=== PATIENT | female | born 1980 | race Caucasian/White ===

== ENCOUNTER 2017-04-18 09:10 | Emergency (ER) | payer SELFPAY ==
[2017-04-18] MEDS ORDERED: DEXAMETHASONE SOD PHOS INJ 10 MG/1 ML VIAL IM ONE (10:18)
--- NOTE | 2017-04-18 10:23 | ER Document Report ---
ED Skin Rash/Insect Bite/Abscs - General Chief Complaint: Rash Stated Complaint: RASH/DIFFICULTY BREATHING Time Seen by Provider: 04/18/17 10:08 Notes: 37 yo female c/o pruritic rash to face, trunk and extremities x 1 day TRAVEL OUTSIDE OF THE [place] IN LAST 30 DAYS: No - HPI Patient complains to provider of: Skin rash/lesion Onset/Duration: Sudden Skin Temperature: Warm Quality of rash: Itchy Identify cause: No Exacerbated by: Denies Relieved by: Denies Similar symptoms previously: No Recently seen / treated by doctor: No - Related Data Allergies/Adverse Reactions: ibuprofen Adverse Reaction (Verified 04/18/17 09:32) ondansetron [From Zofran (as hydrochloride)] Adverse Reaction (Verified 09:32) Past Medical History - General Information source: Patient - Social History Smoking Status: Current Every Day Smoker Chew tobacco use (# tins/day): No Frequency of alcohol use: None Drug Abuse: None Occupation: nurse Lives with: Family Family History: None Patient has suicidal ideation: No Patient has homicidal ideation: No - Past Medical History Cardiac Medical History: Denies: Hx Congestive Heart Failure, Hx Heart Attack, Hx Hypertension Pulmonary Medical History: Reports: Hx COPD Denies: Hx Asthma, Hx Bronchitis, Hx Pneumonia, Hx Tuberculosis Neurological Medical History: Denies: Hx Seizures Renal/ Medical History: Denies: Hx End Stage Renal Disease, Hx Kidney Stones, Hx Peritoneal Dialysis GI Medical History: Denies: Hx Cirrhosis, Hx Gastroesophageal Reflux Disease, Hx Ulcer Musculoskeltal Medical History: Denies Hx Arthritis, Denies Hx Multiple Sclerosis Psychiatric Medical History: Denies: Hx Bipolar Disorder, Hx Depression, Hx Schizophrenia Past Surgical History: Reports: Other - chest tube - Immunizations Hx Diphtheria, Pertussis, Tetanus Vaccination: Yes - received this Review of Systems - Review of Systems Constitutional: No symptoms reported EENT: No symptoms reported Cardiovascular: No symptoms reported Respiratory: No symptoms reported Gastrointestinal: No symptoms reported Genitourinary: No symptoms reported Female Genitourinary: No symptoms reported Musculoskeletal: No symptoms reported Skin: See HPI Hematologic/Lymphatic: No symptoms reported Neurological/Psychological: No symptoms reported Physical Exam - Vital signs Interpretation: Normal - General General appearance: Appears well, Alert - HEENT Head: Normocephalic, Atraumatic Eyes: Normal Pupils: PERRL - Respiratory Respiratory status: No respiratory distress Chest status: Nontender Breath sounds: Normal Chest palpation: Normal - Cardiovascular Rhythm: Regular Heart sounds: Normal auscultation Murmur: No - Abdominal Inspection: Normal Distension: No distension Bowel sounds: Normal Tenderness: Nontender Organomegaly: No organomegaly - Back Back: Normal, Nontender - Extremities General upper extremity: Normal inspection, Nontender, Normal color, Normal ROM , Normal temperature General lower extremity: Normal inspection, Nontender, Normal color, Normal ROM , Normal temperature, Normal weight bearing. No: Bianca's sign - Neurological Neuro grossly intact: Yes Cognition: Normal Orientation: AAOx4 [place] Coma Scale Eye Opening: Spontaneous [place] Coma Scale Verbal: Oriented Mariano Coma Scale Motor: Obeys Commands [place] Coma Scale Total: 15 Speech: Normal Motor strength normal: LUE, RUE, LLE, RLE Sensory: Normal - Psychological Associated symptoms: Normal affect, Normal mood - Skin Skin Temperature: Warm Skin Moisture: Dry Skin Color: Normal Character of irregularity: Vesicular - scattered linear vesicular rash c/w contact dermatitis Discharge - Discharge Clinical Impression: Contact dermatitis Qualifiers: Contact dermatitis type: unspecified Condition: Stable Disposition: HOME, SELF-CARE Instructions: Contact Dermatitis ([facility]), Steroid Medication Injection, Steroid Medication, Topical Steroid Cream or Ointment ([facility]), Use of Diphenhydramine Additional Instructions: You have a contact dermatitis Take medications as prescribed make cool compress with Dom[place]'s solution and apply to rash for 10 min every 4h as needed follow up with primary care if rash persists Prescriptions: Calcium Acetate/Aluminum Sulf [[place] Packet] 1 each TP Q4H PRN #30 packet PRN Reason: Hydrocortisone [Hydrocortisone 0.5% Cream 28.35 Gm] 1 applic TP BID #30 g Prednisone [Deltasone 10 mg Tablet] 10 mg PO ASDIR PRN #21 tablet PRN Reason: Forms: Return to Work
[2017-04-18 11:01] VITALS: BP 112/69
== END 2017-04-18 11:01 | disposition home or self-care (01) ==
LOC: ER 09:10
DX: L25.9 Unspecified contact dermatitis, unspecified cause (principal); J44.9 Chronic obstructive pulmonary disease, unspecified; F17.200 Nicotine dependence, unspecified, uncomplicated
CPT/HCPCS: 99283; 96372; J1100

== ENCOUNTER 2017-09-19 12:12 | Emergency (ER) | payer SELFPAY ==
[2017-09-19 13:18] VITALS: BP 120/70
[2017-09-19] MEDS ORDERED: NORMAL SALINE 1000 ML 1,000 ML IV ONE ×2 (13:40→18:15)
[2017-09-19] MEDS ORDERED: ACETAMINOPHEN 325 MG TABLET PO ONE (13:40)
[2017-09-19] MEDS ORDERED: PROMETHAZINE HCL INJ 25 MG/1 ML VIAL IV ONE (13:40)
--- NOTE | 2017-09-19 13:42 | ER Document Report ---
ED Medical Screen (RME) - General Chief Complaint: Flu Symptoms Stated Complaint: FEVER Time Seen by Provider: 09/19/17 13:39 Notes: Patient states she feels weak she has cough cold congestion and fevers. She also has some nausea. She has had some decreased urinary output. She also states that she has a tender firm mass in her left breast for the last 3 weeks. TRAVEL OUTSIDE OF THE [place] IN LAST 30 DAYS: No - Related Data Allergies/Adverse Reactions: ibuprofen Adverse Reaction (Verified 04/18/17 09:32) ondansetron [From Zofran (as hydrochloride)] Adverse Reaction (Verified 09:32) Past Medical History - Social History Chew tobacco use (# tins/day): No Frequency of alcohol use: None Drug Abuse: None - Past Medical History Cardiac Medical History: Denies: Hx Congestive Heart Failure, Hx Heart Attack, Hx Hypertension Pulmonary Medical History: Denies: Hx Asthma, Hx Bronchitis, Hx COPD, Hx Pneumonia, Hx Tuberculosis Neurological Medical History: Denies: Hx Seizures Renal/ Medical History: Denies: Hx End Stage Renal Disease, Hx Kidney Stones, Hx Peritoneal Dialysis GI Medical History: Denies: Hx Cirrhosis, Hx Gastroesophageal Reflux Disease, Hx Ulcer Musculoskeltal Medical History: Denies Hx Arthritis, Denies Hx Multiple Sclerosis Psychiatric Medical History: Denies: Hx Bipolar Disorder, Hx Depression, Hx Schizophrenia Past Surgical History: Reports: Other - chest tube - Immunizations Hx Diphtheria, Pertussis, Tetanus Vaccination: Yes - received this Physical Exam - Vital signs Vitals: Temp Pulse Resp BP Pulse Ox 100.7 F H 94 16 120/70 98 09/19/17 12:43 09/19/17 12:43 09/19/17 12:43 09/19/17 12:43 09/19/17 12:43 Course - Vital Signs Vital signs: Temp Pulse Resp BP Pulse Ox 100.7 F H 94 16 120/70 98 09/19/17 12:43 09/19/17 12:43 09/19/17 12:43 09/19/17 12:43 09/19/17 12:43
--- NOTE | 2017-09-19 14:27 | RADIOLOGY REPORT (SQ) ---
EXAM DESCRIPTION: CHEST PA/LAT COMPLETED DATE/TIME: 09/19/2017 2:07 pm REASON FOR STUDY: cough/fever COMPARISON: May 2016 EXAM PARAMETERS: NUMBER OF VIEWS: two views TECHNIQUE: Digital Frontal and Lateral radiographic views of the chest acquired. RADIATION DOSE: NA LIMITATIONS: none FINDINGS: LUNGS AND PLEURA: No opacities, masses or pneumothorax. No pleural effusion. MEDIASTINUM AND HILAR STRUCTURES: No masses or contour abnormalities. HEART AND VASCULAR STRUCTURES: Heart normal size. No evidence for failure. BONES: No acute findings. HARDWARE: None in the chest. OTHER: No other significant finding. IMPRESSION: NO SIGNIFICANT RADIOGRAPHIC FINDING IN THE CHEST. TECHNICAL DOCUMENTATION: JOB ID: [id number] [employer]- All Rights Reserved
[2017-09-19 14:56] LABS: HEMOGLOBIN 14.1 g/dL (12.0-15.5); MEAN CORPUSCULAR HEMOGLOBIN 30.7 pg (27.0-33.4); MEAN CORPUSCULAR HGB CONC 34.4 g/dL (32.0-36.0); MEAN CORPUSCULAR VOLUME 89 fl (80-97); PLATELET COUNT 190 10^3/uL (150-450); RED CELL DISTRIBUTION WIDTH 12.7 % (11.5-14.0)
[2017-09-19 15:02] LABS: APPEARANCE,URINE CLEAR; BILIRUBIN,URINE NEGATIVE (NEGATIVE); COLOR,URINE YELLOW; GLUCOSE, URINE NEGATIVE (NEGATIVE); KETONES,URINE 20 mg/dL (NEGATIVE); LEUKOCYTE ESTERASE,URINE NEGATIVE (NEGATIVE); NITRITE,URINE NEGATIVE (NEGATIVE); PROTEIN,URINE NEGATIVE (NEGATIVE); URINE SPECIFIC GRAVITY 1.019
[2017-09-19 15:15] LABS: ABSOLUTE LYMPHOCYTES# (MANUAL) 0.5 10^3/uL (0.5-4.7); ABSOLUTE MONOCYTES # (MANUAL) 0.3 10^3/uL (0.1-1.4); ABSOLUTE NEUTROPHILS# (MANUAL) 6.2 10^3/uL (1.7-8.2); BAND NEUTROPHILS % (MANUAL) 1 % (3-5); BASOPHILS % (MANUAL) 1 % (0-2); EOSINOPHILS % (MANUAL) 0 % (0-6); LYMPHOCYTES % (MANUAL) 6 % (13-45); MONOCYTES % (MANUAL) 4 % (3-13); SEGMENTED NEUTROPHILS % (MAN) 87 % (42-78); TOTAL CELLS COUNTED 100
[2017-09-19 15:18] LABS: A TYPE INFLUENZA AG NEGATIVE (NEGATIVE); B INFLUENZA AG NEGATIVE (NEGATIVE)
[2017-09-19 15:18] LABS: PLATELET COMMENT ADEQUATE; RBC MORPHOLOGY COMMENT NORMO-CYTIC/CHROMIC
[2017-09-19 15:23] LABS: ALANINE AMINOTRANSFERASE 20 U/L (9-52); ALBUMIN 5.1 g/dL (3.5-5.0); ALKALINE PHOSPHATASE 69 U/L (38-126); ANION GAP 15 (5-19); ASPARTATE AMINO TRANSFERASE 28 U/L (14-36); BILIRUBIN,DIRECT 0.4 mg/dL (0.0-0.4); BILIRUBIN,TOTAL 0.5 mg/dL (0.2-1.3); BLOOD UREA NITROGEN 10 mg/dL (7-20); CALCIUM 9.7 mg/dL (8.4-10.2); CARBON DIOXIDE 19 mmol/L (22-30); CHLORIDE 106 mmol/L (98-107); GLUCOSE 102 mg/dL (75-110); TOTAL PROTEIN 8.5 g/dL (6.3-8.2)
[2017-09-19 16:25] LABS: VENOUS BLOOD BASE EXCESS -1.3 mmol/L; VENOUS BLOOD HCO3 21.6 mmol/L (20-32); VENOUS BLOOD PCO2 31.1 mmHg (35-63); VENOUS BLOOD PH 7.46 (7.30-7.42)
--- NOTE | 2017-09-19 17:24 | ER Document Report ---
ED General - General Mode of Arrival: Ambulatory Information source: Patient TRAVEL OUTSIDE OF THE [place] IN LAST 30 DAYS: No <ROBERT DOHERTY - Last Filed: 09/19/17 17:42> <CARLOS ABDI - Last Filed: 09/20/17 11:01> - General Chief Complaint: Flu Symptoms Stated Complaint: FEVER Time Seen by Provider: 09/19/17 13:39 Notes: Patient is a 37 year old female with a history of multiple pneumothroax presents to the emergency department complaining of flu like symptoms. Patient states she has been having body aches and headaches onset 2 days ago with vomiting x3 onset last night. Patient states when she took her temperature last night it was 102. Patient also complains of urinary retention and burning. (ROBERT DOHERTY) - Related Data Allergies/Adverse Reactions: ibuprofen Adverse Reaction (Verified 04/18/17 09:32) ondansetron [From Zofran (as hydrochloride)] Adverse Reaction (Verified 09:32) Past Medical History - General Information source: Patient - Social History Smoking Status: Current Every Day Smoker Chew tobacco use (# tins/day): No Frequency of alcohol use: None Drug Abuse: None Family History: None Patient has suicidal ideation: No Patient has homicidal ideation: No Past Surgical History: Reports: Other - chest tube - Immunizations Hx Diphtheria, Pertussis, Tetanus Vaccination: Yes - received this <ROBERT DOHERTY - Last Filed: 09/19/17 17:42> Review of Systems - Review of Systems Constitutional: No symptoms reported EENT: No symptoms reported Cardiovascular: No symptoms reported Respiratory: No symptoms reported Gastrointestinal: See HPI, Nausea, Vomiting Genitourinary: No symptoms reported, Burning, Retention Female Genitourinary: No symptoms reported Musculoskeletal: No symptoms reported Skin: No symptoms reported Hematologic/Lymphatic: No symptoms reported Neurological/Psychological: No symptoms reported -: Yes All other systems reviewed and negative <ROBERT DOHERTY - Last Filed: 09/19/17 17:42> Physical Exam <ROBERT DOHERTY - Last Filed: 09/19/17 17:42> <CARLOS ABDI - Last Filed: 09/20/17 11:01> - Vital signs Vitals: Temp Pulse Resp BP Pulse Ox 100.7 F H 94 16 120/70 98 09/19/17 12:43 09/19/17 12:43 09/19/17 12:43 09/19/17 12:43 09/19/17 12:43 - Notes Notes: GENERAL: Alert, interacts well. No acute distress. HEAD: Normocephalic, atraumatic. EYES: Appear normal. Pupils equal, round, and reactive to light. ENT: Moist mucus membranes, tongue midline. NECK: Full range of motion. Supple. Trachea midline. LUNGS: Clear to auscultation bilaterally, no wheezes, rales, or rhonchi. No respiratory distress. HEART: Regular rate and rhythm. No murmurs, gallops, or rubs. ABDOMEN: Soft, non-tender. Non-distended. Normal bowel sounds. EXTREMITIES: Moves all 4 extremities spontaneously. NEUROLOGICAL: Alert and oriented x3. Normal speech. PSYCH: Normal affect, normal mood. SKIN: Warm, dry, normal turgor. No rashes or lesions noted. (ROBERT DOHERTY) Course - Laboratory Result Diagrams: 09/19/17 14:40 09/19/17 14:40 <ROBERT DOHERTY - Last Filed: 09/19/17 17:42> - Laboratory Result Diagrams: 09/19/17 14:40 09/19/17 14:40 <CARLOS ABDI - Last Filed: 09/20/17 11:01> - Re-evaluation Re-evalutation: 09/19/17 18:21 Patient's labs within normal limits nonsignificant with normal chest x-ray. Patient is well-appearing. She states that she has been having cough resulting in posttussis emesis that is nonbloody nonbilious. She denies any abdominal pain or chest discomfort at this time. Will provide patient IV fluids and also nausea medications to take home. Instructed to use Tylenol as needed for fever control. Discussed return precautions and follow-up as needed if symptoms are not improving. 09/19/17 18:45 Triage MD came to pod to discuss concern of mass on patient's breast that was not initially discussed when I evaluated the patient. Went back to reevaluate patient and she was gone. Patient is not found by nurses she stated to them that she was going to the bathroom and never returned. (CARLOS ABDI) - Vital Signs Vital signs: Temp Pulse Resp BP Pulse Ox 100.7 F H 94 16 120/70 98 09/19/17 12:43 09/19/17 12:43 09/19/17 12:43 09/19/17 12:43 09/19/17 12:43 - Laboratory Laboratory results interpreted by me: 09/19/17 09/19/17 09/19/17 14:28 14:40 14:40 Seg Neuts % (Manual) 87 H Band Neutrophils % 1 L Lymphocytes % (Manual) 6 L VBG pH VBG pCO2 Carbon Dioxide 19 L Total Protein 8.5 H Albumin 5.1 H Urine Ketones 20 H Urine Blood SMALL H Urine Urobilinogen 4.0 H 09/19/17 16:10 Seg Neuts % (Manual) Band Neutrophils % Lymphocytes % (Manual) VBG pH 7.46 H VBG pCO2 31.1 L Carbon Dioxide Total Protein Albumin Urine Ketones Urine Blood Urine Urobilinogen Discharge <ROBERT DOHERTY - Last Filed: 09/19/17 17:42> <CARLOS ABDI - Last Filed: 09/20/17 11:01> - Discharge Clinical Impression: Upper respiratory infection, acute Condition: Stable Disposition: ELOPED Instructions: Influenza ([facility]) [id number], Viral Syndrome ([facility]) Additional Instructions: If symptoms are not improving or worsening please be reevaluated the next 24-72 hours. Prescriptions: Promethazine HCl 25 mg PO ASDIR PRN #30 tablet PRN Reason: Scribe Attestation: 09/20/17 11:01 I personally performed the services described in the documentation, reviewed and edited the documentation which was dictated to describe my presence, and it accurately records my words and actions (CARLOS ABDI) Scribe Documentation - Scribe Written by Bonnie:: Bonnie Lemos, 09/19/2017 17:26 acting as scribe for :: Patel <ROBERT DOHERTY - Last Filed: 09/19/17 17:42>
== END 2017-09-19 18:15 | disposition left against medical advice (07) ==
LOC: ER 12:12
DX: J06.9 Acute upper respiratory infection, unspecified (principal); R50.9 Fever, unspecified; R51 Headache; R05 Cough; R11.2 Nausea with vomiting, unspecified; R33.9 Retention of urine, unspecified; R30.0 Dysuria; Z87.09 Personal history of other diseases of the respiratory system; F17.200 Nicotine dependence, unspecified, uncomplicated; Z53.20 Procedure and treatment not carried out because of patient's decision for unspecified reasons
CPT/HCPCS: 99281; 96361; 96374; 36415; 87040; 87086; 85025; 81025; 80053; 81001; 82803; 83605; 87804; 71046; J2550; J7030

== ENCOUNTER 2018-03-05 11:10 | Emergency (ER) | payer SELFPAY ==
--- NOTE | 2018-03-05 12:24 | ER Document Report ---
ED Medical Screen (RME) - General Chief Complaint: Abscess Stated Complaint: FEVER Time Seen by Provider: 03/05/18 12:20 Notes: The patient is a 38-year-old female who presents with 6 months of intermittent left breast redness and swelling. She has had drainage from the wound after applying warm compresses in the past. Over the past few days, she has not had any drainage. Also having nausea, vomiting and diarrhea. PE: NAD. Abdomen soft and non-tender. Non-tender erythematous area of left breast at 4 o'clock position with a central, non-tender clear area. No axillary lymphadenopathy. I have greeted and performed a rapid initial assessment of this patient. A comprehensive ED assessment and evaluation of the patient, analysis of test results and completion of the medical decision making process will be conducted by additional ED providers. TRAVEL OUTSIDE OF THE [place] IN LAST 30 DAYS: No - Related Data Allergies/Adverse Reactions: ibuprofen Adverse Reaction (Verified 04/18/17 09:32) ondansetron [From Zofran (as hydrochloride)] Adverse Reaction (Verified 09:32) Past Medical History - Past Medical History Cardiac Medical History: Denies: Hx Congestive Heart Failure, Hx Heart Attack, Hx Hypertension Pulmonary Medical History: Denies: Hx Asthma, Hx Bronchitis, Hx COPD, Hx Pneumonia, Hx Tuberculosis Neurological Medical History: Denies: Hx Seizures Renal/ Medical History: Denies: Hx End Stage Renal Disease, Hx Kidney Stones, Hx Peritoneal Dialysis GI Medical History: Denies: Hx Cirrhosis, Hx Gastroesophageal Reflux Disease, Hx Ulcer Musculoskeltal Medical History: Denies Hx Arthritis, Denies Hx Multiple Sclerosis Psychiatric Medical History: Denies: Hx Bipolar Disorder, Hx Depression, Hx Schizophrenia Past Surgical History: Reports: Other - chest tube - Immunizations Hx Diphtheria, Pertussis, Tetanus Vaccination: Yes - received this Physical Exam - Vital signs Vitals: Temp Pulse Resp BP Pulse Ox 98.1 F 89 18 117/83 100 03/05/18 11:18 03/05/18 11:18 03/05/18 11:18 03/05/18 11:03/05/18 11:18 Course - Vital Signs Vital signs: Temp Pulse Resp BP Pulse Ox 98.1 F 89 18 117/83 100 03/05/18 11:18 03/05/18 11:18 03/05/18 11:18 03/05/18 11:18 03/05/18 11:18
[2018-03-05 12:46] LABS: ABSOLUTE LYMPHOCYTES (AUTO) 0.9 10^3/uL (0.5-4.7); ABSOLUTE MONOCYTES (AUTO) 0.5 10^3/uL (0.1-1.4); ABSOLUTE NEUT (AUTO) 4.4 10^3/uL (1.7-8.2); BASOPHILS % (AUTO) 0.4 % (0-2); EOSINOPHILS % (AUTO) 0.8 % (0-6); HEMATOCRIT 45.8 % (36.0-47.0); HEMOGLOBIN 15.6 g/dL (12.0-15.5); LYMPHOCYTES % (AUTO) 15.2 % (13-45); MEAN CORPUSCULAR HEMOGLOBIN 30.3 pg (27.0-33.4); MEAN CORPUSCULAR VOLUME 89 fl (80-97); MONOCYTES % (AUTO) 8.5 % (3-13); PLATELET COUNT 263 10^3/uL (150-450); RED BLOOD COUNT 5.14 10^6/uL (3.72-5.28); RED CELL DISTRIBUTION WIDTH 12.8 % (11.5-14.0); SEGMENTED NEUTROPHILS % (AUTO) 75.1 % (42-78); TOTAL CELLS COUNTED % (AUTO) 100 %; WHITE BLOOD COUNT 5.8 10^3/uL (4.0-10.5)
--- NOTE | 2018-03-05 12:55 | ER Document Report ---
ED General - General Mode of Arrival: Ambulatory Information source: Patient TRAVEL OUTSIDE OF THE [place] IN LAST 30 DAYS: No - Related Data Home Medications: no home meds per pt. <TENNILLE MEIDNA - Last Filed: 03/05/18 14:01> <TANIYA SOTO - Last Filed: 03/05/18 19:29> - General Chief Complaint: Abscess Stated Complaint: FEVER Time Seen by Provider: 03/05/18 12:20 Notes: 38 y.o female presents to the ED with intermittent fever and an area of tenderness and edema to her LT breast for the past 6 months. She complains that the tenderness and edema was exacerbated whenever she got her period which she last started on February 28. She reports that since she last started her period started she has had a flare to the area of concern as well an onset of erythema , vomiting and diarrhea for the past few days. Pt also complains of a poor appetite and a decrease in urination. She denies any known drainage. She reports concern for her decreased urination due to her PMHx of kidney issues including repeat infections. Pt also reports PMHx of bilateral pneumothorax not due to trauma. (TENNILLE MEDINA) - Related Data Allergies/Adverse Reactions: ibuprofen Adverse Reaction (Verified 04/18/17 09:32) ondansetron [From Zofran (as hydrochloride)] Adverse Reaction (Verified 09:32) Past Medical History - General Information source: Patient - Social History Smoking Status: Current Every Day Smoker Chew tobacco use (# tins/day): No Frequency of alcohol use: None Drug Abuse: None Family History: None Patient has suicidal ideation: No Patient has homicidal ideation: No Pulmonary Medical History: Reports: Other - pneumothorax X2 Renal/ Medical History: Reports: Other - Recurrent kidney infections. Denies : Hx Peritoneal Dialysis Past Surgical History: Reports: Other - chest tube - Immunizations Hx Diphtheria, Pertussis, Tetanus Vaccination: Yes - received this <TENNILLE MEDINA - Last Filed: 03/05/18 14:01> Review of Systems - Review of Systems Constitutional: See HPI, Fever EENT: No symptoms reported Cardiovascular: No symptoms reported Respiratory: No symptoms reported Gastrointestinal: See HPI, Diarrhea, Vomiting, Poor appetite Genitourinary: See HPI, Other - decreased urination Female Genitourinary: See HPI, Last menstrual period - 02/28/18 Musculoskeletal: No symptoms reported Skin: See HPI, Change in color - erythema, Lumps - edema and tenderness to LT breast Hematologic/Lymphatic: No symptoms reported Neurological/Psychological: No symptoms reported -: Yes All other systems reviewed and negative <TENNILLE MEDINA - Last Filed: 03/05/18 14:01> Physical Exam <TENNILLE MEDINA - Last Filed: 03/05/18 14:01> <TANIYA SOTO - Last Filed: 03/05/18 19:29> - Vital signs Vitals: Temp Pulse Resp BP Pulse Ox 98.1 F 89 18 117/83 100 03/05/18 11:18 03/05/18 11:18 03/05/18 11:18 03/05/18 11:18 03/05/18 11:18 - Notes Notes: PHYSICAL EXAM GENERAL: Alert, interacts well. No acute distress. HEAD: Normocephalic, atraumatic. EYES: Pupils equal, round, and reactive to light. Extraocular movements intact. ENT: Oral mucosa moist, tongue midline. NECK: Full range of motion. Supple. Trachea midline. LUNGS: Clear to auscultation bilaterally, no wheezes, rales, or rhonchi. No respiratory distress. HEART: Regular rate and rhythm. No murmurs, gallops, or rubs. ABDOMEN: Soft, non-tender. Non-distended. Bowel sounds present in all 4 quadrants. No guarding, rebound, or rigidity. EXTREMITIES: Moves all 4 extremities spontaneously. No edema, radial and dorsalis pedis pulses 2/4 bilaterally. No cyanosis. NEUROLOGICAL: Alert and oriented x3. Normal speech. PSYCH: Normal affect, normal mood. SKIN: Warm, dry. An [id number] area just below the LT nipple, from the 4 O' clock to the 7 O' clock position, with erythema, edema and minimal fluctuance. ( TENNILLE MEDINA) Course - Laboratory Result Diagrams: 03/05/18 12:29 03/05/18 12:29 <TENNILLE MEDINA - Last Filed: 03/05/18 14:01> - Laboratory Result Diagrams: 03/05/18 12:29 03/05/18 12:29 <TANIYA SOTO - Last Filed: 03/05/18 19:29> - Re-evaluation Re-evalutation: 03/05/18 14:44 CBC unremarkable, chemistry unremarkable, vomiting is stopped, patient requested IV fluids however felt the IVs were too painful so we ended up stopping the IV fluids. Bedside ultrasound performed and interpreted by me did not show any localized fluid collection. I discussed the case with radiology and am concerned that this patient's mass on her left breast that apparently changes with hormonal fluctuations around her period may represent cancer. After discussions with radiology and [facility] they were able to set up an appointment for 10 AM on the for the patient to have bilateral diagnostic mammograms with ultrasounds and an appointment on the with Dr. Gan at the surgical clinic for further follow-up to rule out breast cancer. The erythema clearly represent cellulitis, this will be treated with Bactrim and Keflex. Patient is aware of my concerns for possible malignancy, she has agreed to keep her appointments. For the vomiting which is resolved and the diarrhea which is intermittent patient was counseled regarding clear liquid diet followed by BRAT diet and using Imodium. (TANIYA SOTO) - Vital Signs Vital signs: Temp Pulse Resp BP Pulse Ox 98.0 F 80 16 115/70 100 03/05/18 15:04 03/05/18 15:04 03/05/18 15:04 03/05/18 15:04 03/05/18 15:04 - Laboratory Laboratory results interpreted by me: 03/05/18 03/05/18 12:29 12:29 Hgb 15.6 H Total Protein 8.4 H Discharge <TENNILLE MEDINA - Last Filed: 03/05/18 14:01> <TANIYA SOTO - Last Filed: 03/05/18 19:29> - Discharge Clinical Impression: Cellulitis of left breast, Left breast mass, Nausea vomiting and diarrhea Condition: Stable Disposition: HOME, SELF-CARE Additional Instructions: Cellulitis You have an infection of your skin and underlying soft tissues called cellulitis. This is due to bacteria, which can enter through any break in the skin, or even through an irritated hair follicle. Untreated, cellulitis will usually worsen. Antibiotics are required. Usually, warm packs or warm soaks, and elevation of the infected area are recommended. You should start getting better within 24 to 36 hours. Most infections respond quickly to the right medication. Follow-up care is important, however, to check for abscess (boil) formation, unsuspected foreign body, or resistant infection. If you develop fever, chills, or if the area of infection is becoming rapidly more swollen or painful, call the doctor at once. You have an appointment to have bilateral mammograms with ultrasounds performed tomorrow morning at 10 AM at [facility]. Please show up approximately 30 minutes prior to your appointment to complete paperwork. This is to look for cancer. You also have a follow-up appointment on Sunday the with Dr. Gan at 9 AM, please show by 8:45 AM to complete paperwork. He is the surgeon who will talk to you about the results of your mammograms and ultrasounds. For the left breast skin infection please take the Bactrim and the Keflex as directed until they are gone. For your diarrhea you may take Imodium as directed on the box. Prescriptions: Cephalexin Monohydrate [Keflex 500 mg Capsule] 1,000 mg PO BID #28 capsule Sulfamethoxazole/Trimethoprim [Bactrim Ds Tablet] 1 each PO BID #14 tablet Forms: Follow-Up Radiology Testing Referrals: MICKY GAN MD [ACTIVE STAFF] - 03/06/18 10:00 am Scribe Attestation: 03/05/18 19:29 I personally performed the services described in the documentation, reviewed and edited the documentation which was dictated to the scribe in my presence, and it accurately records my words and actions. (TANIYA SOTO) Scribe Documentation - Scribe Written by Bonnie:: Bonnie Dickerson 03/05/18 1300 acting as scribe for :: Manuel <TENNILLE MEDINA - Last Filed: 03/05/18 14:01>
[2018-03-05] MEDS ORDERED: CEPHALEXIN 500 MG CAPSULE PO ONE (13:05)
[2018-03-05] MEDS ORDERED: SULFAMETHOXAZOLE/TRIMETHOPRIM 800-160 MG TABLET PO ONE (13:05)
[2018-03-05] MEDS ORDERED: NORMAL SALINE 1000 ML 1,000 ML IV ONE (13:05)
[2018-03-05 13:10] LABS: ALANINE AMINOTRANSFERASE 15 U/L (9-52); ALBUMIN 4.7 g/dL (3.5-5.0); ALKALINE PHOSPHATASE 79 U/L (38-126); ANION GAP 15 (5-19); ASPARTATE AMINO TRANSFERASE 18 U/L (14-36); BILIRUBIN,DIRECT 0.4 mg/dL (0.0-0.4); BILIRUBIN,TOTAL 0.7 mg/dL (0.2-1.3); BLOOD UREA NITROGEN 18 mg/dL (7-20); CALCIUM 9.5 mg/dL (8.4-10.2); CARBON DIOXIDE 28 mmol/L (22-30); CHLORIDE 102 mmol/L (98-107); GLUCOSE 101 mg/dL (75-110); SODIUM 144.7 mmol/L (137-145); TOTAL PROTEIN 8.4 g/dL (6.3-8.2)
[2018-03-05 15:11] VITALS: BP 115/70
== END 2018-03-05 15:04 | disposition home or self-care (01) ==
LOC: ER 11:10
DX: N61.0 Mastitis without abscess (principal); N63.0 Unspecified lump in unspecified breast; R11.2 Nausea with vomiting, unspecified; R19.7 Diarrhea, unspecified; R50.9 Fever, unspecified; R63.0 Anorexia; R39.89 Other symptoms and signs involving the genitourinary system; F17.200 Nicotine dependence, unspecified, uncomplicated
CPT/HCPCS: 36415; 80053; 85025; 99283

== ENCOUNTER → 2018-03-06 | Outpatient (CLI) | payer OTHER ==
--- NOTE | 2018-03-06 12:50 | WOMENS IMAGING REPORT ---
EXAM DESCRIPTION: BILAT DIAGNOSTIC MAMMO W/CAD; U/S BREAST UNILAT LIMITED COMPLETED DATE/TIME: 03/06/2018 10:10 am; 03/06/2018 11:43 am REASON FOR STUDY: LEFT NODULAR DENSITY; LEFT BREAST NODULE; N63.23 N63.23 UNSPECIFIED LUMP IN THE L EFT BREAST, LOWER OUTER QUAD COMPARISON: No prior breast imaging TECHNIQUE: Standard craniocaudal and mediolateral oblique views of each breast recorded using digita l acquisition. Additional left breast 90 mediolateral view, and cone compression left breast images in the CC MLO o rientations in the area of palpable abnormalities/ skin thickening and redness left periareolar regio n. Left breast ultrasound was also performed. Patient presents with a red tender area left periareolar 6 o'clock position which fluctuates with men ses. LIMITATIONS: None. FINDINGS: RIGHT BREAST MASSES: No suspicious masses. CALCIFICATIONS: No new or suspicious calcifications. ARCHITECTURAL DISTORTION: None. DEVELOPING DENSITY: None. ASYMMETRY: None noted. OTHER: No other significant findings. LEFT BREAST MASSES: No suspicious masses. CALCIFICATIONS: No new or suspicious calcifications. ARCHITECTURAL DISTORTION: None. DEVELOPING DENSITY: None. ASYMMETRY: None noted. OTHER: There is skin thickening along the left breast 6 o'clock periareolar region without associated calcifications. Read with the assistance of CAD: .[facility] - R2 Cenova Version 1.3 .[facility] Imaging - R2 Cenova Version 1.3 .[facility] Imaging - R2 Cenova Version 2.4 .[facility] - R2 Cenova Version 2.4 .[facility] - R2 Animal Husbandman Version 9.2 Left breast ultrasound: In the left breast retroareolar region, 6 o'clock position there is focal skin thickening and a hypoe choic plaque-like area of tissue with minimal internal color flow in the deep aspect of the dermis. This measures about 3.2 cm by 2.2 cm by 0.7 cm in size. This is abnormal but nonspecific, and could represent chronic inflammation related to a ruptured sebaceous cyst. Epidermal inclusion cyst is als o possible. Chronic inflammation from obstructed Mckenna gland or a nipple adenoma are also possi ble. Granular cell tumor of the skin could not be excluded. If this area does not improve with anti biotics, excisional biopsy should be considered. IMPRESSION: No mammographic evidence for malignancy right breast. Abnormal skin thickening with plaque-like hypoechoic lesion in the deep aspect of the dermis at the 6 o'clock position left breast. If this does not resolve with antibiotic therapy, excisional biopsy s hould be considered. BREAST DENSITY: c. The breasts are heterogeneously dense, which may obscure small masses. BIRAD: 4 Suspicious. Biopsy should be considered. RECOMMENDATION: RECOMMENDED FOLLOW UP: Patient has an appointment later this week with . If this lesion does not resolve with antibiotic therapy, excisional biopsy should be considered SPECIFIC INTERVENTION/IMAGING/CONSULTATION RECOMMENDED:As above COMMUNICATION:Results were discussed with the patient, she was instructed to keep her appointment wit h Dr. Gan later this week Radiographics 2011;31:[id number] COMMENT: The patient has been notified of the results by letter per SA requirements. Additional no tification policies are in place for contacting patient with suspicious or incomplete findings. Quality ID #225: The [employer] recommends an annual screening mammogram for women aged 40 years or over. This facility utilizes a reminder system to ensure that all patients receive reminder letters, and/or direct phone calls for appointments. This includes reminders for routine scr eening mammograms, diagnostic mammograms, or other Breast Imaging Interventions when appropriate. Th is patient will be placed in the appropriate reminder system. The [employer] (ACR) has developed recommendations for screening MRI of the breast s in certain patient populations, to be used in conjunction with mammography. Breast MRI surveillanc e may be appropriate for women with more than 20% lifetime risk of developing breast cancer as deter mined by genetic testing, significant family history of the disease, or history of mantle radiation f or Hodgkins Disease. ACR Practice Guidelines 2008. TECHNICAL DOCUMENTATION: FINDING NUMBER: (1) ASSESSMENT: (1) JOB ID: [id number] [employer]- All Rights Reserved Reading location - IP/workstation name: [facility]
--- NOTE | 2018-03-06 12:50 | WOMENS IMAGING REPORT ---
EXAM DESCRIPTION: BILAT DIAGNOSTIC MAMMO W/CAD; U/S BREAST UNILAT LIMITED COMPLETED DATE/TIME: 03/06/2018 10:10 am; 03/06/2018 11:43 am REASON FOR STUDY: LEFT NODULAR DENSITY; LEFT BREAST NODULE; N63.23 N63.23 UNSPECIFIED LUMP IN THE L EFT BREAST, LOWER OUTER QUAD COMPARISON: No prior breast imaging TECHNIQUE: Standard craniocaudal and mediolateral oblique views of each breast recorded using digita l acquisition. Additional left breast 90 mediolateral view, and cone compression left breast images in the CC MLO o rientations in the area of palpable abnormalities/ skin thickening and redness left periareolar regio n. Left breast ultrasound was also performed. Patient presents with a red tender area left periareolar 6 o'clock position which fluctuates with men ses. LIMITATIONS: None. FINDINGS: RIGHT BREAST MASSES: No suspicious masses. CALCIFICATIONS: No new or suspicious calcifications. ARCHITECTURAL DISTORTION: None. DEVELOPING DENSITY: None. ASYMMETRY: None noted. OTHER: No other significant findings. LEFT BREAST MASSES: No suspicious masses. CALCIFICATIONS: No new or suspicious calcifications. ARCHITECTURAL DISTORTION: None. DEVELOPING DENSITY: None. ASYMMETRY: None noted. OTHER: There is skin thickening along the left breast 6 o'clock periareolar region without associated calcifications. Read with the assistance of CAD: .[facility] - R2 Cenova Version 1.3 .[facility] Imaging - R2 Cenova Version 1.[address] Imaging - R2 Cenova Version 2.4 .[facility] - R2 Cenova Version 2.4 .[facility] - R2 Rug Touch Up Painter Version 9.2 Left breast ultrasound: In the left breast retroareolar region, 6 o'clock position there is focal skin thickening and a hypoe choic plaque-like area of tissue with minimal internal color flow in the deep aspect of the dermis. This measures about 3.2 cm by 2.2 cm by 0.7 cm in size. This is abnormal but nonspecific, and could represent chronic inflammation related to a ruptured sebaceous cyst. Epidermal inclusion cyst is als o possible. Chronic inflammation from obstructed Mckenna gland or a nipple adenoma are also possi ble. Granular cell tumor of the skin could not be excluded. If this area does not improve with anti biotics, excisional biopsy should be considered. IMPRESSION: No mammographic evidence for malignancy right breast. Abnormal skin thickening with plaque-like hypoechoic lesion in the deep aspect of the dermis at the 6 o'clock position left breast. If this does not resolve with antibiotic therapy, excisional biopsy s hould be considered. BREAST DENSITY: c. The breasts are heterogeneously dense, which may obscure small masses. BIRAD: 4 Suspicious. Biopsy should be considered. RECOMMENDATION: RECOMMENDED FOLLOW UP: Patient has an appointment later this week with . If this lesion does not resolve with antibiotic therapy, excisional biopsy should be considered SPECIFIC INTERVENTION/IMAGING/CONSULTATION RECOMMENDED:As above COMMUNICATION:Results were discussed with the patient, she was instructed to keep her appointment wit h Dr. Gan later this week Radiographics 2011;31:[id number] COMMENT: The patient has been notified of the results by letter per SA requirements. Additional no tification policies are in place for contacting patient with suspicious or incomplete findings. Quality ID #225: The [employer] recommends an annual screening mammogram for women aged 40 years or over. This facility utilizes a reminder system to ensure that all patients receive reminder letters, and/or direct phone calls for appointments. This includes reminders for routine scr eening mammograms, diagnostic mammograms, or other Breast Imaging Interventions when appropriate. Th is patient will be placed in the appropriate reminder system. The [employer] (ACR) has developed recommendations for screening MRI of the breast s in certain patient populations, to be used in conjunction with mammography. Breast MRI surveillanc e may be appropriate for women with more than 20% lifetime risk of developing breast cancer as deter mined by genetic testing, significant family history of the disease, or history of mantle radiation f or Hodgkins Disease. ACR Practice Guidelines 2008. TECHNICAL DOCUMENTATION: FINDING NUMBER: (1) ASSESSMENT: (1) JOB ID: [id number] [employer]- All Rights Reserved Reading location - IP/workstation name: [facility]
== END ==
LOC: WI 09:47
PROVIDERS: ATTEND Emergency Medicine
DX: N63.23 Unspecified lump in the left breast, lower outer quadrant (principal)
CPT/HCPCS: 76642; 77066

== ENCOUNTER 2020-08-18 18:37 | Emergency (ER) | payer SELFPAY ==
[2020-08-18] MEDS ORDERED: ACETAMINOPHEN 325 MG TABLET PO ONE (19:06)
--- NOTE | 2020-08-18 19:09 | ER Document Report ---
ED Medical Screen (RME) - General Stated Complaint: BREST LUMP Time Seen by Provider: 08/18/20 19:05 Primary Care Provider: TANIYA SOTO DO [Primary Care Provider] - Follow up as needed Notes: Patient presents complaining of left breast tenderness with redness and swelling for the past 5 days. Patient denies fever although does report some chills as she was just diagnosed with Covid today. Patient states she has had a lump to the breast that drained in the past spontaneously. Patient does report getting a mammogram within the past year that was normal. I have greeted and performed a rapid initial assessment of this patient. A com prehensive ED assessment and evaluation of the patient, analysis of test results and completion of the medical decision making process will be conducted by additional ED providers. TRAVEL OUTSIDE OF THE [place] IN LAST 30 DAYS: No - Related Data Allergies/Adverse Reactions: ibuprofen Adverse Reaction (Verified 04/18/17 09:32) morphine Adverse Reaction (Verified 08/18/20 19:08) ondansetron [From Zofran (as hydrochloride)] Adverse Reaction (Verified 04/18/17 09:32) Past Medical History - Past Medical History Cardiac Medical History: Denies: Hx Congestive Heart Failure, Hx Heart Attack, Hx Hypertension Pulmonary Medical History: Denies: Hx Asthma, Hx Bronchitis, Hx COPD, Hx Pneumonia, Hx Tuberculosis Neurological Medical History: Denies: Hx Seizures, Hx Parkinson's Disease Renal/ Medical History: Denies: Hx End Stage Renal Disease, Hx Kidney Stones, Hx Peritoneal Dialysis GI Medical History: Denies: Hx Cirrhosis, Hx Gastroesophageal Reflux Disease, Hx Ulcer Musculoskeltal Medical History: Denies Hx Arthritis, Denies Hx Multiple Sclerosis Psychiatric Medical History: Denies: Hx Bipolar Disorder, Hx Depression, Hx Schizophrenia Past Surgical History: Reports: Other - chest tube - Immunizations Hx Diphtheria, Pertussis, Tetanus Vaccination: Yes - received this Physical Exam - Vital signs Vitals: Temp Pulse Resp BP Pulse Ox 98.4 F 73 16 157/96 H 98 08/18/20 18:41 08/18/20 18:41 08/18/20 18:41 08/18/20 18:41 08/18/20 18:41 - General General appearance: Alert Notes: Palpable tender lump to left breast with erythema to the breast Course - Vital Signs Vital signs: Temp Pulse Resp BP Pulse Ox 98.4 F 73 16 157/96 H 98 08/18/20 18:41 08/18/20 18:41 08/18/20 18:41 08/18/20 18:41 08/18/20 18:41 Doctor's Discharge - Discharge Referrals: TANIYA SOTO DO [Primary Care Provider] - Follow up as needed
[2020-08-18 20:18] LABS: ABSOLUTE BASOPHILS # (AUTO) 0.1 10^3/uL (0.0-0.2); ABSOLUTE EOSINOPHILS # (AUTO) 0.1 10^3/uL (0.0-0.6); ABSOLUTE LYMPHOCYTES (AUTO) 1.5 10^3/uL (0.5-4.7); ABSOLUTE MONOCYTES (AUTO) 0.6 10^3/uL (0.1-1.4); ABSOLUTE NEUT (AUTO) 5.5 10^3/uL (1.7-8.2); BASOPHILS % (AUTO) 0.7 % (0-2); EOSINOPHILS % (AUTO) 1.2 % (0-6); HEMATOCRIT 41.6 % (36.0-47.0); HEMOGLOBIN 14.1 g/dL (12.0-15.5); LYMPHOCYTES % (AUTO) 19.9 % (13-45); MEAN CORPUSCULAR HEMOGLOBIN 30.4 pg (27.0-33.4); MEAN CORPUSCULAR VOLUME 89 fl (80-97); MONOCYTES % (AUTO) 7.4 % (3-13); PLATELET COUNT 208 10^3/uL (150-450); RED BLOOD COUNT 4.66 10^6/uL (3.72-5.28); RED CELL DISTRIBUTION WIDTH 12.9 % (11.5-14.0); SEGMENTED NEUTROPHILS % (AUTO) 70.8 % (42-78); TOTAL CELLS COUNTED % (AUTO) 100 %; WHITE BLOOD COUNT 7.8 10^3/uL (4.0-10.5)
[2020-08-18 20:34] LABS: ANION GAP 8 (5-19); BLOOD UREA NITROGEN 15 mg/dL (7-20); CALCIUM 9.7 mg/dL (8.4-10.2); CARBON DIOXIDE 27 mmol/L (22-30); CHLORIDE 103 mmol/L (98-107); GLUCOSE 97 mg/dL (75-110); POTASSIUM 4.2 mmol/L (3.6-5.0)
--- NOTE | 2020-08-18 20:47 | ER Document Report ---
ED Breast Problem - General Chief Complaint: Breast Problem Stated Complaint: BREAST LUMP Time Seen by Provider: 08/18/20 19:05 Primary Care Provider: MICKY GAN MD [ACTIVE STAFF] - Follow up as needed Mode of Arrival: Ambulatory Information source: Patient Notes: 40-year-old female patient presented to emergency department chief complaint of left breast tenderness and redness. She reports symptoms ongoing for last 4 days. Patient denies any fever, reports some chills. States she was diagnosed with Covid earlier today. She works at a [employer]. She reports having history of similar symptoms in the past, states at that time she was calm antibiotics and did not require incision and drainage. She did follow-up with the surgical clinic for that. TRAVEL OUTSIDE OF THE [place] IN LAST 30 DAYS: No - Related Data Allergies/Adverse Reactions: ibuprofen Adverse Reaction (Verified 04/18/17 09:32) morphine Adverse Reaction (Verified 08/18/20 19:08) ondansetron [From Zofran (as hydrochloride)] Adverse Reaction (Verified 04/18/17 09:32) Past Medical History - General Information source: Patient - Social History Smoking Status: Current Every Day Smoker Chew tobacco use (# tins/day): No Frequency of alcohol use: None Drug Abuse: None Family History: None Past Surgical History: Reports: Other - chest tube - Immunizations Hx Diphtheria, Pertussis, Tetanus Vaccination: Yes - received this Review of Systems - Review of Systems Skin: See HPI -: Yes All other systems reviewed and negative Physical Exam - Vital signs Vitals: Temp Pulse Resp BP Pulse Ox 98.4 F 73 16 157/96 H 98 08/18/20 18:41 08/18/20 18:41 08/18/20 18:41 08/18/20 18:41 08/18/20 18:41 - Notes Notes: PHYSICAL EXAMINATION: GENERAL: Well-appearing, well-nourished and in no acute distress. HEAD: Atraumatic, normocephalic. EYES: Pupils equal round and reactive to light, extraocular movements intact, c onjunctiva are normal. ENT: Nares patent, oropharynx clear without exudates. Moist mucous membranes. NECK: Normal range of motion, supple without lymphadenopathy LUNGS: Breath sounds clear to auscultation bilaterally and equal. No wheezes rales or rhonchi. HEART: Regular rate and rhythm without murmurs ABDOMEN: Soft, nontender, nondistended abdomen. No guarding, no rebound. No masses appreciated. Female : deferred Musculoskeletal: Normal range of motion, no pitting or edema. No cyanosis. NEUROLOGICAL: Cranial nerves grossly intact. Normal speech, normal gait. Normal sensory, motor exams PSYCH: Normal mood, normal affect. SKIN: Area of induration with erythema noted to left breast at the 3:00 to 6:00 location. No fluctuance noted. No streaking noted. No drainage from the nipple or areola. Course - Re-evaluation Re-evalutation: Patient appears well, nontoxic. There is an area of induration but no f luctuance. Patient will need to start antibiotics. She will need to follow-up with the surgical clinic. She will also need to have a diagnostic mammogram done in the next 30 days per the recommendation of the radiologist. Patient verbalized understanding and agreement this plan. Patient has a very low threshold for returning to the emergency department for potential in person incision and drainage by her surgeons. - Vital Signs Vital signs: Temp Pulse Resp BP Pulse Ox 98.4 F 73 16 157/96 H 98 08/18/20 18:41 08/18/20 18:41 08/18/20 18:41 08/18/20 18:41 08/18/20 18:41 - Laboratory Results Result Diagrams: 08/18/20 19:54 08/18/20 19:54 Critical Laboratory Results Reviewed: No Critical Results - Radiology Results Critical Radiology Results Reviewed: No Critical Results Discharge - Discharge Clinical Impression: Breast abscess Condition: Stable Disposition: HOME, SELF-CARE Additional Instructions: Please call and schedule a follow-up appointment with Dr. Gan's office. Take antibiotics as prescribed. Apply warm compresses to the area. Have a very low threshold for returning to the emergency department especially considering we are going into a holiday weekend. Take medication as prescribed for pain. No driving or consuming any alcohol while you are on this medication. Prescriptions: Hydrocodone/Acetaminophen [Schoenchen 5-325 mg Tablet] 1 tab PO Q6HP PRN #10 tablet PRN Reason: Sulfamethoxazole/Trimethoprim [Bactrim Ds Tablet] 1 tab PO BID #14 tablet Cephalexin [Keflex] 500 mg PO QID #28 capsule Referrals: MICKY GAN MD [ACTIVE STAFF] - Follow up as needed
[2020-08-18] MEDS ORDERED: CEPHALEXIN 500 MG CAPSULE PO ONE (21:34)
[2020-08-18] MEDS ORDERED: HYDROCODONE/ACETAMINOPHEN 5-325 MG (6 TAB/ER DISP) PO PRN (21:34)
[2020-08-18] MEDS ORDERED: SULFAMETHOXAZOLE/TRIMETHOPRIM 800-160 MG TABLET PO ONE (21:34)
--- NOTE | 2020-08-18 22:17 | RADIOLOGY REPORT (SQ) ---
Right breast ultrasound: 08/18/2020 9:11 PM [employer]NAGER [employer] COMPARISON: Left breast ultrasound performed 03/06/2018; bilateral diagnostic mammogram from 03/06/2018 TECHNIQUE: Multiple grayscale images of the area(s) of interest within the breast were obtained. HISTORY: 40-year-old patient with lump within the right breast and concern for infection. FINDINGS: There is a hypoechoic area noted within the skin at the area of interest. This also extends into the left breast tissue at the subdermal region. There is increased color Doppler vascularity at the periphery. The area has some low level internal echoes. This is seen at the area of interest at the 4:00 position. This is near the nipple according to the regional tanker truck driver. The area demonstrates some redness according to the patient and regional tanker truck driver. This measures at least 2.0 x 1.5 x 1.0 cm. The skin at this area appears to be diffusely thickened, measuring at least 5 mm. The breast tissue is evaluated approximately 3 cm of depth at the area of interest. IMPRESSION: There is an intradermal area measuring at least 2.0 cm which may represent a sebaceous or epidermoid cyst with superimposed infection. Portions of this also appeared to possibly extend below the skin surface. Interval follow-up after appropriate treatment with antibiotics is recommended to assess for resolution and any possible malignancy. BI-RADS 0: Needs additional imaging The patient should return within one month for bilateral diagnostic mammogram and repeat right breast ultrasound to assess for resolution and also to evaluate for any possible malignancies.
[2020-08-18 23:03] VITALS: BP 125/80
== END 2020-08-18 23:01 | disposition home or self-care (01) ==
LOC: ER 18:37
DX: N61.1 Abscess of the breast and nipple (principal); F17.200 Nicotine dependence, unspecified, uncomplicated
CPT/HCPCS: 36415; 76642; 80048; 85025; 99285

== ENCOUNTER 2020-09-13 09:23 | Emergency (ER) | payer SELFPAY ==
--- NOTE | 2020-09-13 11:05 | ER Document Report ---
ED Respiratory Problem - General Chief Complaint: Cough Stated Complaint: +COVID (3WKS)SHORTNESS OF BREATH Time Seen by Provider: 09/13/20 10:43 Notes: CHIEF COMPLAINT: Shortness of breath over the last 3 weeks HPI: 40-year-old female who smokes presenting for shortness of breath over the last 3 weeks. Patient was diagnosed with a positive Covid test 3 weeks ago. Has continued to smoke. No fever. Has taken no medications for symptoms ROS: See HPI - all other systems were reviewed and are otherwise negative Constitutional: no fever Eyes: no drainage, no blurred vision ENT: no runny nose, no sore throat Cardiovascular: no chest pain Resp: + SOB, + cough GI: no vomiting, no diarrhea, no abdominal pain : no dysuria Integumentary: no rash Allergy: no hives Musculoskeletal: no extremity pain or swelling Neurological: no numbness/tingling, no weakness MEDICATIONS: I agree with the patient medications as charted by the RN. ALLERGIES: I agree with the allergies as charted by the RN. PAST MEDICAL HISTORY/PAST SURGICAL HISTORY: Reviewed and agree as charted by RN. SOCIAL HISTORY: Reviewed and agree as charted by RN. FAMILY HISTORY: No significant familial comorbid conditions directly related to patient complaint EXAM: Reviewed vital signs as charted by RN. CONSTITUTIONAL: Alert and oriented and responds appropriately to questions. Well-appearing; well-nourished HEAD: Normocephalic; atraumatic EYES: PERRL; Conjunctivae clear, sclerae non-icteric ENT: normal nose; no rhinorrhea; moist mucous membranes; pharynx without lesions noted, no uvula edema or deviation, no tonsillar hypertrophy, phonation normal NECK: Supple without meningismus; non-tender; no cervical lymphadenopathy, no masses CARD: RRR; no murmurs, no clicks, no rubs, no gallops; symmetric distal pulses RESP: Normal chest excursion without splinting or tachypnea; breath sounds clear and equal bilaterally; no wheezes, no rhonchi, no rales, pulse oximetry 97% on room air not hypoxic ABD/GI: Normal bowel sounds; non-distended; soft, non-tender, no rebound, no guarding; no palpable organomegaly or masses. BACK: The back appears normal and is non-tender to palpation, there is no CVA tenderness EXT: Normal ROM in all joints; non-tender to palpation; no cyanosis, no effusions, no edema SKIN: Normal color for age and race; warm; dry; good turgor; no acute lesions noted NEURO: Moves all extremities equally; Motor and sensory function intact PSYCH: The patient's mood and manner are appropriate. Grooming and personal hygiene are appropriate. MDM: 40-year-old female with shortness of breath over the last 3 weeks since positive Covid diagnosis. We spoke at length about smoking cessation. Lung sounds are clear to auscultation chest x-ray on my review does not show evidence of an infiltrate. Discharge home Decadron, albuterol given likely predisposition to bronchospasm given her smoking history The patient was evaluated during the global COVID-19 pandemic and that diagnosis was suspected/considered upon their initial presentation. Their evaluation, treatment and testing was consistent with current guidelines for patients who present with complaints or symptoms that may be related to COVID-19 TRAVEL OUTSIDE OF THE [place] IN LAST 30 DAYS: No - Related Data Allergies/Adverse Reactions: ibuprofen Adverse Reaction (Verified 04/18/17 09:32) morphine Adverse Reaction (Verified 08/18/20 19:08) ondansetron [From Zofran (as hydrochloride)] Adverse Reaction (Verified 04/18/17 09:32) Past Medical History - Social History Smoking Status: Current Every Day Smoker Frequency of alcohol use: None Family History: None - Past Medical History Cardiac Medical History: Denies: Hx Congestive Heart Failure, Hx Heart Attack, Hx Hypertension Pulmonary Medical History: Denies: Hx Asthma, Hx Bronchitis, Hx COPD, Hx Pneumonia, Hx Tuberculosis Neurological Medical History: Denies: Hx Seizures, Hx Parkinson's Disease Renal/ Medical History: Denies: Hx End Stage Renal Disease, Hx Kidney Stones, Hx Peritoneal Dialysis GI Medical History: Denies: Hx Cirrhosis, Hx Gastroesophageal Reflux Disease, Hx Ulcer Musculoskeletal Medical History: Denies Hx Arthritis, Denies Hx Multiple Sclerosis Psychiatric Medical History: Denies: Hx Bipolar Disorder, Hx Depression, Hx Schizophrenia Past Surgical History: Reports: Other - chest tube - Immunizations Hx Diphtheria, Pertussis, Tetanus Vaccination: Yes - received this Physical Exam - Vital signs Vitals: Temp Pulse Resp BP Pulse Ox 98.1 F 87 18 147/85 H 100 09/13/20 09:34 09/13/20 09:34 09/13/20 09:34 09/13/20 09:34 09/13/20 09:34 Course - Vital Signs Vital signs: Temp Pulse Resp BP Pulse Ox 98.1 F 87 18 147/85 H 100 09/13/20 09:34 09/13/20 09:34 09/13/20 09:34 09/13/20 09:34 09/13/20 09:34 - Laboratory Results Critical Laboratory Results Reviewed: No Critical Results - Radiology Results Critical Radiology Results Reviewed: No Critical Results Discharge - Discharge Clinical Impression: Shortness of breath Condition: Stable Disposition: HOME, SELF-CARE Instructions: COVID-19 Guidance for Persons Under Investigation Additional Instructions: Use the albuterol inhaler 2 puffs every 4 hours as needed for shortness of breath. Take the Decadron as prescribed. Stop smoking. Follow-up with your primary care provider for reevaluation of symptoms call for appointment return for onset of fever greater than 101 or worsening shortness of breath Prescriptions: Dexamethasone [Decadron 4 Mg Tablet] 4 mg PO DAILY #7 tablet Albuterol Sulfate [Proair HFA Inhalation Aerosol 8.5 gm MDI] 2 puff IH Q4H PRN #1 mdi PRN Reason: Referrals: FERNANDO YADAV MD [ACTIVE STAFF] - Follow up as needed
--- NOTE | 2020-09-13 11:08 | RADIOLOGY REPORT (SQ) ---
EXAM DESCRIPTION: CHEST SINGLE VIEW IMAGES COMPLETED DATE/TIME: 09/13/2020 10:59 am REASON FOR STUDY: cough COMPARISON: 09/19/2017 EXAM PARAMETERS: NUMBER OF VIEWS: One view. TECHNIQUE: Single frontal radiographic view of the chest acquired. RADIATION DOSE: NA LIMITATIONS: None. FINDINGS: LUNGS AND PLEURA: No opacities, masses or pneumothorax. No pleural effusion. MEDIASTINUM AND HILAR STRUCTURES: No masses. Contour normal. HEART AND VASCULAR STRUCTURES: Heart normal in size. Normal vasculature. BONES: No acute findings. HARDWARE: None in the chest. OTHER: No other significant finding. IMPRESSION: NO ACUTE RADIOGRAPHIC FINDING IN THE CHEST. TECHNICAL DOCUMENTATION: JOB ID: [id number] 2010 [employer]- All Rights Reserved Reading location - IP/workstation name: [email or web address]
[2020-09-13 11:14] VITALS: BP 138/78
== END 2020-09-13 11:14 | disposition home or self-care (01) ==
LOC: ER 09:23
DX: R06.02 Shortness of breath (principal); R05 Cough; F17.200 Nicotine dependence, unspecified, uncomplicated; Z20.822 Contact with and (suspected) exposure to COVID-19
CPT/HCPCS: 71045; 99283